=== PATIENT | female | born 1940 | race Caucasian/White ===

== ENCOUNTER 2016-12-05 17:39 | Emergency (ER) | payer OTHER ==
[2016-12-05] MEDS ORDERED: LORazepam 1 MG TAB ONE (18:01)
--- NOTE | 2016-12-05 18:17 | EDPHY ---
General - History Smoking Status: Unknown if ever smoked Narrative: I took over care of this patient at 10:30 p.m.. This patient has a history of bipolar disorder with acute manic phase. He is on an M1 hold primarily for nickel acting inability to care for himself. He is being evaluated by Behavioral Health at this time. 7:00 a.m., the patient has been evaluated by Behavioral Health. We are awaiting their disposition. Care turned over to Dr. Johann Otero at this time. (Anupama Ahmadi) CHIEF COMPLAINT: M1, right ankle pain HISTORY OF PRESENT ILLNESS: patient arrived by EMS with reports of an M1 being completed by her psychiatrist. The patient denies any complaints and is anxious about this. She says she is not sure why she is here. She was gardening when they came to get her. She is denies any thoughts of suicidal ideation, but she does admit to depression and anxiety. She is not sure what she is supposed to be taking but reports she has not been taking anything. She is also not sure when she last saw her psychiatrist or primary care physician. She is anxious and jittery. She will not provide any other information regarding this. She also has right ankle pain that started yesterday when she rolled it. She will not quantify this. She will not describe any other modifying factors of this. She is not very cooperative will not provide any other information. M1 is on the patient's chart. REVIEW OF SYSTEMS: Ten systems reviewed and are negative unless otherwise noted in the HPI EXAMINATION General Appearance: Alert, no distress . Fidgeting and anxious Head: normocephalic, atraumatic Eyes: Pupils equal and round, no conjunctival pallor or injection ENT, Mouth: Patient will not allow me to evaluate. Neck: Normal inspection, supple, non-tender Respiratory: no obvious distress. Patient will not allow me to auscultate. Cardiovascular: Regular rate and rhythm. Pulses intact distally with good perfusion Gastrointestinal: Patient will not allow me to evaluate. Neurological: A&O, nonfocal Skin: Warm and dry, no rash . No ecchymosis or abrasions. No lacerations. Extremities: Tenderness to palpation of the right ankle medial and lateral. No crepitus or instability. No tenderness of the midfoot. Psychiatric: Flat affect is anxious. Denies suicidal ideation. Denies homicidal ideation. Denies suicidal attempt DIFFERENTIAL DIAGNOSES: Including but not limited to major depression, bipolar disorder, mood disorder , suicidal ideation, ankle sprain, ankle fracture MDM: 6:15 p.m. notes of major depression and bipolar disorder and noncompliance to medications. There is an M1 hold by her psychiatrist on the chart. RN notified me that she is very anxious and upset about this and requested medication. She has been given oral Ativan. I will wait to evaluate her at her request. She is stable and in no acute distress. Right ankle pain we evaluated with x-ray. Suspect this is only a sprain. 6:45 p.m. notified by radiologist of the x-ray findings of the right ankle as listed. I have ordered a Swan boot and we will place her on crutches. I recommend that she be nonweightbearing on the extremity until seen by Orthopedics, but the patient is declining this. She does not want to be in the boot or on crutches. She does not want any care for the ankle of any kind. She says "It' s fine." 10:45 p.m. patient has been medically cleared for several hours. We are still awaiting for her evaluation which should be approximately 2300. She is in no acute distress And has not required any further medication. We did finally obtain her daily medications, which revealed Depakote was on her list. We have been informed that she has not been taking her medications regularly but we are checking the Depakote level. I have given the okay for her to take her metoprolol and pravastatin. I do not want to give her her remaining blood pressure medications as she has reportedly been off for 1 or more weeks. We will resume her evening Depakote and Risperdal after her evaluation if her Depakote level is normal or low. 11:15 p.m. Depakote level is low, and we will administer her nightly dose. She is still awaiting her evaluation at this time. 11:30 p.m. at this time, I have discussed the case with Dr. Ahmadi and have handed the patient over to him. He will evaluate the patient and provide final disposition. Please see his note for further details. SUPERVISION: Patient was evaluated in conjunction with the supervising physician. Please see their note for details. (Mukul Sánchez) Medical Decision Making: At 10:40am, I was informed that the patient has been accepted by Dr. Padilla for inpatient admission. (Johann Otero) - Objective Vital Signs: Initial Vital Signs Temperature (C) 98.1 F 12/05/16 17:39 Heart Rate 108 H 12/05/16 17:39 Respiratory Rate 20 12/05/16 17:39 Blood Pressure 222/124 H 12/05/16 17:39 O2 Sat (%) 96 12/05/16 17:39 O2 Delivery Mode Room Air Allergies/Adverse Reactions: amlodipine Allergy (Verified 12/05/16 17:50) atorvastatin Allergy (Verified 12/05/16 17:50) ezetimibe [From Vytorin 10-10] Allergy (Verified 12/05/16 17:50) lisinopril Allergy (Verified 12/05/16 17:50) nifedipine Allergy (Verified 12/05/16 17:50) simvastatin [From Vytorin 10-10] Allergy (Verified 12/05/16 17:50) Sulfa (Sulfonamide Antibiotics) Allergy (Verified 12/05/16 17:50) triamterene Allergy (Verified 12/05/16 17:50) venlafaxine Allergy (Verified 12/05/16 17:50) Home Medications: Medication Instructions Recorded ASPIRIN 12/05/16 Laboratory Results: Laboratory Results 12/05/16 18:10 12/05/16 18:10 Medications Given: Discontinued Medications Hydrocodone Bitart/Acetaminophen ([place] 5/325) 1 tab PO EDNOW ONE Stop: 12/06/16 05:31 Last Admin: 12/06/16 05:30 Dose: 1 tab Divalproex Sodium (Depakote) 750 mg PO EDNOW ONE Stop: 12/05/16 23:31 Last Admin: 12/06/16 01:00 Dose: 750 mg Metoprolol Tartrate (Lopressor) 25 mg PO EDNOW ONE Stop: 12/05/16 23:02 Last Admin: 12/06/16 01:00 Dose: 25 mg Metoprolol Tartrate (Lopressor) 25 mg PO EDNOW ONE Stop: 12/06/16 10:59 Last Admin: 12/06/16 11:10 Dose: 25 mg Departure - Departure Disposition: Other Psych, Not [facility] Clinical Impression: Depression, major, recurrent Qualifiers: Active/Remission status: currently active Major depression episode severity: severe Psychotic features: without psychotic features Qualified Code(s): F33.2 - Major depressive disorder, recurrent severe without psychotic features Bipolar disorder Qualifiers: Active/Remission status: currently active Current bipolar episode type: depressed Current episode severity: severe Psychotic features: without psychotic features Qualified Code(s): F31.4 - Bipolar disorder, current episode depressed, severe, without psychotic features Talus fracture Qualifiers: Encounter type: initial encounter Fracture type: closed Talus location: unspecified portion of talus Fracture alignment: nondisplaced Laterality: unspecified laterality Qualified Code(s): S92.109A - Unspecified fracture of unspecified talus, initial encounter for closed fracture Condition: Fair Referrals: Patient,NotPresent [Unknown] - As per Instructions Rubina Stevens MD [Medical Doctor] - As per Instructions
[2016-12-05 18:26] LABS: ABSOLUTE IMMATURE GRANULOCYTES 0.09 10^3/uL (0.00-0.10); ADD DIFF? NO; ADD MORPH? NO; ADD SCAN? NO; ATYPICAL LYMPHOCYTE FLAG 10 (0-99); FRAGMENT RBC FLAG 0 (0-99); HEMATOCRIT 44.2 % (38.0-47.0); HEMOGLOBIN 14.9 g/dL (12.6-16.3); LEFT SHIFT FLG 0 (0-99); LIPEMIA HEMOLYSIS FLAG 80 (0-99); MEAN CELL HEMOGLOBIN 30.6 pg (27.9-34.1); MEAN CELL HEMOGLOBIN CONCENTR. 33.7 g/dL (32.4-36.7); MEAN CELL VOLUME 90.8 fL (81.5-99.8); MEAN PLATELET VOLUME 9.3 fL (8.7-11.7); PLATELET CLUMPS FLAG 10 (0-99); PLATELET COUNT 331 10^3/uL (150-400); RED BLOOD CELL COUNT 4.87 10^6/uL (4.18-5.33); RED CELL DISTRIBUTION WIDTH 13.4 % (11.5-15.2)
[2016-12-05 18:39] LABS: ANION GAP 14 mEq/L (8-16); CALCIUM 11.1 mg/dL (8.5-10.4); CARBON DIOXIDE 27 mEq/l (22-31); CHLORIDE 101 mEq/L (97-110); CREATININE 0.8 mg/dL (0.6-1.0); ETHANOL SERUM < 10 mg/dL (0-10); GLOMERULAR FILTRATION RATE > 60; GLUCOSE 108 mg/dL (70-100); POTASSIUM 3.9 mEq/L (3.5-5.2); SALICYLATE < 1.0 mg/dL (2.0-20.0); SODIUM 142 mEq/L (134-144)
[2016-12-05] MEDS ORDERED: DIVALPROEX NA 500 MG TAB PO ONE (22:56)
[2016-12-05] MEDS ORDERED: METOPROLOL TARTRATE 25 MG TAB PO ONE (23:01)
[2016-12-05] MEDS ORDERED: DIVALPROEX NA 250 MG TAB PO ONE (23:30)
[2016-12-06 00:25] LABS: COLOR YELLOW; LEUKOCYTE ESTERASE,URINE 1+ (NEGATIVE); NITRITE,URINE NEGATIVE (NEGATIVE)
[2016-12-06 00:36] LABS: BACTERIA TRACE /hpf (NONE SEEN); MUCUS TRACE /lpf (NONE-1+)
[2016-12-06] MEDS ORDERED: HYDROCODONE/APAP 5/325 TAB ONE (05:18)
[2016-12-06] MEDS ORDERED: HYDROCODONE/APAP 5/325 TAB PO ONE (05:30)
[2016-12-06] MEDS ORDERED: METOPROLOL TARTRATE 25 MG TAB PO ONE (10:58)
[2016-12-06 11:11] VITALS: BP 166/101; PULSE 86; RESP 18; TEMP 97.9; O2SAT 97
== END 2016-12-06 12:27 ==
DX: S92.101A Unspecified fracture of right talus, initial encounter for closed fracture (principal); F31.4 Bipolar disorder, current episode depressed, severe, without psychotic features; X58.XXXA Exposure to other specified factors, initial encounter
CPT/HCPCS: 80305; G0480